=== PATIENT | male | born 1965 | race Caucasian/White ===

== ENCOUNTER 2020-03-28 01:22 | Outpatient (CLI) | payer OTHER, SELFPAY ==
[2020-03-29 13:59] LABS: SARS-CoV-2 RNA PCR Negative
== END 2020-03-28 01:23 | disposition home or self-care (01) ==
LOC: ANHCOVIDDT 01:23
PROVIDERS: PCP Family Medicine; Visit Provider Internal Medicine Gastroenterology
DX: Z01.818 Encounter for other preprocedural examination (principal); Z11.59 Encounter for screening for other viral diseases
CPT/HCPCS: 87635; C9803; U0003

== ENCOUNTER 2020-03-30 03:40 | Day surgery (SDC) | payer OTHER, SELFPAY ==
[2020-03-23 15:07] VITALS: BMI 25.4
[2020-03-30 06:23] VITALS: BP 99/73; PULSE 59; RESP 20; TEMP 36.7; O2SAT 99; BMI 24.5
[2020-03-30] MEDS: LACTATED RINGERS 1,000 ML 150 ML IV CONT (06:34)
--- NOTE | 2020-03-30 06:41 | P.PNAN_ITS ---
Anes - Initial Pre Proc Eval Procedure: Operation Date: 03/30/20 07:30 Proposed Procedures p Screening Colonoscopy - Andrez Arias MD Date/Time: 03/30/20 06:41 Surgeon: Andrez Arias MD Pre Op Diagnosis: neoplasm screening Patient Data Age: 54 Gender: M Height: 5 ft 9 in Weight: 75.5 kg Last Vital Signs Temp 36.7 C 03/30/20 06:23 Pulse 59 L 03/30/20 06:23 Resp 20 03/30/20 06:23 BP 99/73 L 03/30/20 06:23 Pulse Ox 99 03/30/20 06:23 Allergies Allergy/AdvReac Type Severity Reaction Status Date / Time povidone Allergy Unknown Swelling Verified 03/30/20 06:22 Home Medications Medication Instructions Recorded Confirmed Type simvastatin 20 mg tablet 20 mg PO QPM #90 tablet 11/10/19 03/23/20 Rx sildenafil [Viagra] 50 mg PO DAILY PRN 03/23/20 03/23/20 History peg 3350-electrolytes 236 240 ml PO Q10M #4000 ml 03/28/20 Rx gram-22.74 gram-6.74 gram-5.86 gram solution Patient hx anesthesia problems: none Family hx anesthesia problems: none PMFSH Past Medical History Medical History Cervical radiculopathy Erectile dysfunction Hypercholesterolemia Hypogonadism Surgical History Surgical History [place] teeth extracted Family History Family History Other High cholesterol Social History Social History Smoking status: Never smoker Second hand tobacco smoke exposure: No Alcohol intake: current Substance use: never Substance use type: does not use Gender identity (if verbalized by the patient): Male Anes - Eval Final PreProcedure Day of Procedure 03/30/20 06:41 Patient weight: normal Heart: regular rate and rhythm Lungs: clear to auscultation Airway: Mallampati scale class II Neurological: alert and oriented Last oral intake: >/= 8 hours ASA classification: II Emergent: no Anesthetic plan: proceed Anesthesia type and monitoring: general GIVS and standard monitoring Informed Consent: The patient's anesthetic plan and its attendant risks and benefits were discussed with the patient/family/POA. Questions were solicited and answers provided to the satisfaction of the patient/family/POA.
--- NOTE | 2020-03-30 07:53 | PM.HPGS ---
History of Present Illness History of Present Illness Consent: Risks, benefits, and alternatives have been discussed and questions answered. Patient agrees to proceed with procedure. Chief complaint: neoplasm screening Narrative: Kasi Heath is a 54 year old male here for first screening colonoscopy Review of Systems Constitutional: Constitutional: Denies headache(s) and Denies weakness Eyes: Eyes: Denies blurry vision ENT: Reports Normal hearing present, Denies headache(s) and Denies neck pain Cardiovascular: Cardiovascular: Denies chest pain and Denies dyspnea Respiratory: Respiratory: Denies dyspnea Gastrointestinal: Gastrointestinal: Reports no additional gastrointestinal complaints Genitourinary: Genitourinary: Denies dysuria Musculoskeletal: Musculoskeletal: Denies neck pain Integumentary/Breasts: Skin/Breast: Denies dry skin Neurologic: Reports Normal hearing present, Denies headache(s) and Denies weakness Psychiatric: Psychiatric: Denies anxiety Endocrine: Endocrine: Denies change in body appearance Hematologic/Lymphatic: Hematologic/Lymphatic: Denies easy bleeding Allergic/Immunologic: Allergic/Immunologic: Denies urticaria PMFSH Past Medical History Medical History Cervical radiculopathy Erectile dysfunction Hypercholesterolemia Hypogonadism Surgical History Surgical History [place] teeth extracted Family History Family History Other High cholesterol Social History Social History Smoking status: Never smoker Second hand tobacco smoke exposure: No Alcohol intake: current Substance use: never Substance use type: does not use Gender identity (if verbalized by the patient): Male Meds Home Medications and Allergies Home Medications Medication Instructions Recorded Confirmed Type simvastatin 20 mg tablet 20 mg PO QPM #90 tablet 11/10/19 03/23/20 Rx sildenafil [Viagra] 50 mg PO DAILY PRN 03/23/20 03/23/20 History peg 3350-electrolytes 236 240 ml PO Q10M #4000 ml 03/28/20 Rx gram-22.74 gram-6.74 gram-5.86 gram solution Allergies Allergy/AdvReac Type Severity Reaction Status Date / Time povidone Allergy Unknown Swelling Verified 03/30/20 06:22 Vital Signs Vital Signs - 24 hr 03/30/20 06:23 Temperature 98.0 F Pulse Rate 59 L Respiratory Rate 20 Blood Pressure 99/73 L Pulse Oximetry 99 Exam Const: General: comfortable and no acute distress HENMT: General nose exam: Normal nares present Eyes: General: appearance normal, both eyes and all related structures Neck: Neck: no JVD Resp: Auscultation: clear to auscultation bilaterally Cardio: Rate: regular rate Rhythm: regular rhythm GI: Inspection: non-distended GI Palp: Yes Soft to palpation Skin: General skin exam: normal color Neuro: General: gait normal Speech: normal speech Extrem: General: normal to inspection Psych: Mental Status: mental status grossly normal Assessment and Plan Assessment and plan (1) Colon cancer screening: Code(s): Z12.11 - Encounter for screening for malignant neoplasm of colon Status: Acute Assessment and Plan: will proceed with colonoscopy (2) Hypercholesterolemia: Code(s): E78.00 - Pure hypercholesterolemia, unspecified Status: Acute
[2020-03-30 08:11] VITALS: BP 96/67; PULSE 58; RESP 16; O2SAT 96
[2020-03-30 08:21] VITALS: BP 100/65; PULSE 58; RESP 13; O2SAT 97
[2020-03-30 08:31] VITALS: BP 96/54; PULSE 50; RESP 16; O2SAT 98
== END 2020-03-30 08:49 | disposition home or self-care (01) ==
PROVIDERS: PCP Family Medicine; Visit Provider Internal Medicine Gastroenterology
PROC: 0DJD8ZZ Inspection of Lower Intestinal Tract, Via Natural or Artificial Opening Endoscopic (ICD-10-PCS; CPT 45378; principal; 2020-03-30 07:30)
DX: Z12.11 Encounter for screening for malignant neoplasm of colon (principal); E78.00 Pure hypercholesterolemia, unspecified; N52.9 Male erectile dysfunction, unspecified
CPT/HCPCS: 45378; J2704; J7120

== ENCOUNTER 2021-05-06 18:07 | Observation (INO) | payer BC, SELFPAY ==
--- NOTE | ~2021-05-06 | CT_ITS ---
EXAMINATION: CT abdomen pelvis w con DATE: 05/07/2021 09:59 INDICATION: Epigastric abdominal pressure. Nausea. TECHNIQUE: Computed tomography (CT) of the abdomen and pelvis was performed with 100 mL Omnipaque 350 intravenous contrast. Automated exposure control and iterative reconstruction technique were employe d. The dose-length product was 384.28 mGy-cm. COMPARISON: None. FINDINGS: The visualized portions of the lung bases demonstrate mild atelectasis. No pleural effusion . Calcified left hilar lymph nodes are consistent with old granulomatous disease. The heart size is n ormal. No pericardial effusion. The liver, gallbladder, spleen, pancreas, and adrenal glands are norm al. There are cysts in the kidneys measuring up to 10 mm on the left. There is a 3 mm stone in right kidney. The prostate is mildly enlarged. There are no dilated loops of bowel. The appendix is normal. There are no pathologically enlarged lymph nodes. There is no free intraperitoneal fluid. There is m ild fat stranding at the root of the small bowel mesentery. There is mild chronic anterior wedging of multiple thoracic vertebral bodies. There is mild thoracic and lumbar spondylosis. IMPRESSION: 1. Mild fat stranding at the root of the small bowel mesentery, consistent with edema versus inflamma tion (mesenteric panniculitis). Reviewed, dictated and finalized at location A. IMPRESSION: 1. 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
--- NOTE | ~2021-05-06 | XR_ITS ---
EXAMINATION: XR chest 1V portable EXAM DATE: 05/07/2021 01:58 INDICATION: Chest pain. TECHNIQUE: Portable AP frontal chest x-ray was obtained. Comparison is made to prior examination from 08/05/2018. FINDINGS: The lungs are clear. There are no pleural effusions. The cardiomediastinal silhouette is within normal limits. There is no pneumothorax suspected. The bones and soft tissues are unremarkab le. IMPRESSION: Unremarkable chest x-ray exam. Reviewed, dictated and finalized at location A.
--- NOTE | ~2021-05-06 | US_ITS ---
EXAMINATION: US carotid duplex BI EXAM DATE: 05/07/2021 12:31 INDICATION: Syncope. TECHNIQUE: Grayscale, color and pulsed Doppler images of the cervical carotid arteries were obtained . The degree of vessel stenosis is placed in one of the following categories: normal, <50% stenosis, 50-69% stenosis, >=70% stenosis but less than near-occlusion, near-occlusion, or occlusion. Note that percent stenosis relative to normal distal artery lumen diameter is indirectly measured from velocit y measurements as described by Christopher, et al. Radiology 2003; 229:340-346. Comparison is made to prior examination from 04/05/2018. FINDINGS: RIGHT SIDE: Right common carotid artery peak systolic velocity (PSV in cm/s): 74 Right bulb/internal carotid artery peak systolic velocity (PSV in cm/s): 75 Right internal carotid artery end diastolic velocity (EDV in cm/s): 32 Right ICA/CCA peak systolic ratio: 1.0 Right external carotid artery peak systolic velocity (PSV in cm/s): 95 Right vertebral artery antegrade flow: yes There is minimal carotid bulb plaque. Velocity and Doppler waveforms in the common and internal carotid arteries is normal. LEFT SIDE: Left common carotid artery peak systolic velocity (PSV in cm/s): 97 Left bulb/internal carotid artery peak systolic velocity (PSV in cm/s): 72 Left internal carotid artery end diastolic velocity (EDV in cm/s): 27 Left ICA/CCA peak systolic ratio: 0.7 Left external carotid artery peak systolic velocity (PSV in cm/s): 102 Left vertebral artery antegrade flow: yes There is minimal carotid bulb plaque. Velocity and Doppler waveforms in the common and internal carotid arteries is normal. IMPRESSION: 1. Less than 50 percent stenosis in the right internal carotid artery. 2. Less than 50 percent stenosis in the left internal carotid artery. Reviewed, dictated and finalized at location A.
--- NOTE | ~2021-05-06 | CT_ITS ---
EXAMINATION: CT brain wo con DATE: 05/06/2021 23:24 INDICATION: Syncope TECHNIQUE: Computed tomography (CT) of the head was performed without intravenous contrast. The mA wa s adjusted according to patient size. Iterative reconstruction technique was employed. Exam dose: 68 1.00 mGy-cm total exam DLP. COMPARISON: 04/04/2018 CT brain FINDINGS: No intracranial mass lesion or hemorrhage or cerebrovascular accident. No ventriculomegaly. A stable small calcification is noted in the posterior aspect of the right frontal horn, unchanged s peyman 04/04/2018. Normal mukherjee-white matter differentiation. No midline shift or mass effect effect. There is bilateral carotid siphon internal carotid artery calcification. No intracranial mass lesion or hemorrhage or cerebrovascular accident. No subdural or epidural hemato ma. The orbits are unremarkable. No fracture or bone destruction of the cranial vault. The mastoid air cells and included paranasal si nuses are unremarkable. IMPRESSION: No acute intracranial finding or significant change since 04/04/2018 Reviewed, dictated and finalized at Location A. Reviewed, dictated and finalized at location A. IMPRESSION: No acute intracranial finding or significant change since 8
--- NOTE | ~2021-05-06 | NM_ITS ---
EXAMINATION: NM layo stress w perfusion DATE: 05/07/2021 12:56 INDICATION: Retrosternal chest pain. TECHNIQUE: Rest images were obtained following intravenous administration of 9.8 mCi Tc99m tetrofosmi n (Myoview). The patient was infused intravenously with Lexiscan (regadenoson). Then, 29.7 mCi Tc99m tetrofosmin (Myoview) was administered intravenously, and stress images were obtained. Data was recon structed into short axis and horizontal and vertical long axis SPECT images. Gated SPECT images were also obtained. COMPARISON: CT abdomen and pelvis 05/07/2021 FINDINGS: There is no definite reversible or fixed perfusion abnormality to suggest ischemia or infar ction. There is no segmental wall motion abnormality. Left ventricular ejection fraction measures 6 4%. IMPRESSION: 1. No definite ischemia or infarct. 2. Normal left ventricular ejection fraction measuring 64%. Reviewed, dictated and finalized at location A.
--- NOTE | 2021-05-06 18:16 | ECG_ITS ---
Measurements Intervals [place] Rate: 91 P: -7 MD: 104 QRS: 0 QRSD: 96 T: 17 QT: 399 QTc: 492 Interpretive Statements SINUS RHYTHM WITH SHORT MD INTERVAL NONSPECIFIC T-WAVE ABNORMALITY- ANT/INF LEADS BORDERLINE ECG Electronically Signed On 05-07-2021 6:45:12 CDT by Jeramy Nathan D.O.
[2021-05-06 18:25] VITALS: BP 105/52; PULSE 62; RESP 18; TEMP 36.3; O2SAT 97
[2021-05-06 18:35] LABS: Basophils Absolute Auto 0.1 K/mm3 (0.0-0.1); Basophils Percent Auto 0.6 % (0.2-1.2); Eosinophils Absolute Auto 0.3 K/mm3 (0-0.3); Eosinophils Percent Auto 3.9 % (0-4.4); Hematocrit 43.5 % (42.0-52.0); Hemoglobin 14.3 g/dL (14.0-18.0); Immature Granulocyte Absolute 0.01 K/mm3 (0.00-0.031); Immature Granulocyte Percent A 0.1 % (0-0.5); Lymphocytes Absolute Auto 4.24 K/mm3 (0.9-3.2); Lymphocytes Percent Auto 51.8 % (18.3-44.2); Mean Corpuscular HGB Conc 32.9 g/dl (32-36); Mean Corpuscular Hemoglobin 29.4 pg (26-34); Mean Corpuscular Volume 89.5 fl (80-100); Monocytes Absolute Auto 0.6 K/mm3 (0.1-0.6); Monocytes Percent Auto 7.6 % (2.6-8.5); Neutrophils Absolute Auto 2.9 K/mm3 (1.3-6.7); Platelet Count Result 260 k/mm3 (150-375); Red Blood Count 4.86 M/mm3 (4.6-6.20); Red Cell Distribution Width 13.5 % (11.5-14.5); White Blood Count 8.2 K/mm3 (4.5-10.0)
[2021-05-06 18:50] LABS: Anion Gap 13 mmol/L (8-16); Blood Urea Nitrogen 17 mg/dL (9-20); Calcium 9.7 mg/dL (8.4-10.2); Carbon Dioxide 21 mmol/L (22-30); Chloride 101 mmol/L (98-107); Estimated CRCL calculation 103 ml/min; Estimated Glomerular Filt Rate > 60; Glucose 132 mg/dL (65-110); Potassium 3.3 mmol/L (3.4-5.0); Sodium 135 mmol/L (137-145)
[2021-05-06 22:35] VITALS: BP 109/62; PULSE 66; O2SAT 98
[2021-05-06 22:52] VITALS: BP 104/78; PULSE 67; RESP 20; O2SAT 98
[2021-05-06 22:53] VITALS: PULSE 66
[2021-05-06 23:50] VITALS: BP 100/70; PULSE 64; RESP 12; O2SAT 97
[2021-05-07] VITALS (16 sets, daily range): BP systolic 99–115; BP diastolic 67–82; PULSE 52–91; RESP 12–20; TEMP 36–36.4; O2SAT 96–100; BMI 24.4; BMI 24.6
--- NOTE | 2021-05-07 | ECHO_ITS ---
Patient Info Name: Kasi Heath Age: 55 years : 1965 Gender: Male Ht: 69 in Wt: 167 lbs BSA: 1.93 m2 HR: 60 bpm BP: 99 / 67 mmHg Heart Rhythm: Sinus Rhythm Technical Quality: Good Exam Date: 05/07/2021 1:23 PM Exam Location: [facility] Pulmonary Patient Status: Inpatient Admit Date: 05/07/2021 Staff Ordering Physician: Slava Mckee MD Manager Auto: Adrienne Back RDCS Attending Provider: Gennaro Anthony MD Referring Physician: Rafi KAMARA; Exam Type: CA echo doppler color flow Study Info Indications R55 - Syncope and collapse Complete two-dimensional, color flow and Doppler transthoracic echocardiogram is performed. Strain analysis performed. Summary 1. Complete two-dimensional, color flow and Doppler transthoracic echocardiogram is performed. 2. Strain analysis performed. 3. Left ventricular systolic function is normal, estimated at 55-60%. 4. Left ventricular chamber dimension is normal. 5. There is no increased left ventricular wall thickness. 6. The left ventricular diastolic function is normal. 7. Global longitudinal strain is normal at -20 %. 8. There is mild mitral valve regurgitation. 9. There is mild tricuspid valve regurgitation. Left Ventricle Left ventricular chamber dimension is normal. Left ventricular systolic function is normal, estimated at 55-60%. There is no increased left ventricular wall thickness. The left ventricular diastolic function is normal. Global longitudinal strain is normal at -20 %. Right Ventricle Right ventricular chamber dimension is normal. Right ventricular systolic function is normal. Left Atria Left atrial chamber dimension is normal. Right Atria Right atrial chamber dimension is normal. Atrial Septum Intact interatrial septum visualized by color flow imaging. Aortic Valve The aortic valve is trileaflet. There is mild aortic valve sclerosis. There is no aortic valve stenosis. There is trace aortic valve regurgitation. Pulmonic Valve The pulmonic valve is normal. There is no pulmonic valve stenosis. There is trace pulmonic regurgitation. Mitral Valve The mitral valve has normal leaflets. There is no mitral valve stenosis. There is mild mitral valve regurgitation. Tricuspid Valve The tricuspid valve leaflets are normal. There is no significant tricuspid valve stenosis. There is mild tricuspid valve regurgitation. No pulmonary hypertension, estimated pulmonary arterial systolic pressure is 29 mmHg. Inferior Vena Cava Normal inferior vena cava with <50% collapse upon inspiration consistent with elevated right atrial pressure, 10 mmHg. Aorta The aortic root size at the sinus of Valsalva is normal. The prox ascending aorta size is normal. Left Ventricular Outflow Tract Name Value Normal LVOT 2D LVOT Diameter 2.0 cm LVOT Doppler LVOT Peak Gradient 5 mmHg LVOT Mean Gradient 3 mmHg LVOT VTI 23 cm LVOT VTI/AV VTI Ratio 0.9 LVOT Stroke Volume 76 ml
--- NOTE | 2021-05-07 00:12 | ED.GENADULT ---
HPI - General Adult General Chief complaint: Syncope Stated complaint: LIGHTHEADED, NAUSEA, SYNCOPE Time Seen by Provider: 05/06/21 22:58 Source: patient History of Present Illness HPI narrative: Patient is a 55 y/o male complaining of passing out. He states that he was not feeling well when he was driving to a [employer] earlier and pulled over in the parking lot. He states that he passed out briefly and felt numbness and tingling all over. He also has been having abdominal pain and chest pressure since earlier today. He does not have any chest pain or abdominal pain currently. Related Data Allergies Allergy/AdvReac Type Severity Reaction Status Date / Time povidone Allergy Unknown Swelling Verified 09/04/20 15:31 Review of Systems Constitutional: Constitutional: Denies chills, Denies fever(s), Denies headache(s) and Denies weakness Eyes: Eyes: Denies blurry vision ENT: Denies headache(s) and Denies neck pain Cardiovascular: Cardiovascular: Reports chest pain and Denies dyspnea Respiratory: Respiratory: Denies cough and Denies dyspnea Gastrointestinal: Gastrointestinal: Reports abdominal pain, Denies diarrhea, Denies nausea and Denies vomiting Genitourinary: Genitourinary: Denies hematuria and Denies dysuria Musculoskeletal: Musculoskeletal: Denies back pain and Denies neck pain Neurologic: Reports syncope, Denies headache(s) and Denies weakness PMFSH Past Medical History Medical History Cervical radiculopathy Colon cancer screening Erectile dysfunction Hypercholesterolemia Hypogonadism Surgical History Surgical History [place] teeth extracted Family History Family History (Updated 05/07/21 @ 12:07 by Slava Mckee MD) Other Heart attack Father Cancer Other High cholesterol Social History Social History Smoking status: Never smoker Second hand tobacco smoke exposure: No Alcohol intake: current Drinks per week: 2 Alcohol use details: consumes 3 beers socially Substance use: never Substance use type: does not use Gender identity (if verbalized by the patient): Male Spiritual care concerns: No Exam Const: General: no acute distress and well developed Orientation/consciousness: oriented to person, oriented to place, oriented to time and patient oriented x3 HENMT: Head: normocephalic Ears: external ears normal General nose exam: Normal external nose present Eyes: General: appearance normal, both eyes and all related structures Conjunctivae: conjunctivae normal Neck: Neck: normal visual inspection and full ROM Chest: Chest palpation & inspection: normal inspection of the chest and no tenderness Resp: Effort & Inspection: normal respiratory effort Auscultation: clear to auscultation bilaterally Cardio: Rate: regular rate Rhythm: regular rhythm GI: GI Palp: No abdominal tenderness and Yes Soft to palpation Skin: General skin exam: normal color and turgor normal Neuro: General: oriented to person, oriented to place, oriented to time and patient oriented x3 Cognition (Neuro): normal cognition Extrem: General: normal to inspection, full ROM and no pedal edema Psych: Appearance: grossly normal Mental Status: mental status grossly normal Affect: normal affect Course Consultations Consultation #1: Discussed with Dr. Anthony, who agrees to admit. Date: 05/07/21 Time: 01:48 Vital Signs Vital signs: Vital Signs Temperature 36.3 C L 05/06/21 18:25 Pulse Rate 62 05/06/21 18:25 Respiratory Rate 18 05/06/21 18:25 Blood Pressure 105/52 L 05/06/21 18:25 Pulse Oximetry 97 05/06/21 18:25 Temperature 36.4 C L 05/07/21 09:23 Pulse Rate 60 05/07/21 14:00 Respiratory Rate 20 05/07/21 13:05 Blood Pressure 111/68 05/07/21 13:05 Pulse Oximetry 100 05/07/21 13:05
[2021-05-07] MEDS: POTASSIUM CHLORIDE 20 MEQ TABLET PO (01:05)
[2021-05-07 01:27] LABS: Troponin I < 0.012 ng/mL (0.000-0.034)
[2021-05-07 03:52] LABS: Troponin I < 0.012 ng/mL (0.000-0.034)
--- NOTE | 2021-05-07 04:24 | PM.IMHP ---
H&P: HPI History of Present Illness Date/Time: 05/07/21 04:24 Chief Complaint: Retrosternal pain Narrative: This is a 55-year-old male with past medical history significant for dyslipidemia. 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 Patient states that he has been his usual state of health up until this episode he denies any chest pain ,any nausea, any vomiting, any lightheadedness, dizziness, syncope or near syncope, no cough, no sputum production, no diarrhea, no hematemesis, no hematochezia, no melena. He was feeling very lightheaded and decided to come to our emergency room. Preliminary workup has been essentially nonrevealing. Patient has been placed in observation status. Review of Systems Review of Systems: Retrosternal chest pain and syncope Constitutional: Constitutional: Denies chills, Denies fatigue and Denies fever(s) Eyes: Eyes: Denies change in vision ENT: Denies dysphagia, Denies nasal congestion, Denies nasal discharge, Denies nasal obstruction and Denies odynophagia Cardiovascular: Cardiovascular: Reports chest pain (Retrosternal) and Reports lightheadedness Respiratory: Respiratory: Denies cough and Denies wheezing Gastrointestinal: Gastrointestinal: Denies abdominal pain, Denies constipation, Denies GI cramping, Denies dyspepsia, Denies heartburn, Reports nausea and Denies vomiting Genitourinary: Genitourinary: Reports no additional male genitourinary complaints Musculoskeletal: Musculoskeletal: Reports no additional musculoskeletal complaints Integumentary/Breasts: Skin/Breast: Reports system reviewed and no additional complaints, except as docu Neurologic: Reports system reviewed and no additional complaints, except as documented Psychiatric: Psychiatric: Reports no additional psychiatric complaints Endocrine: Endocrine: Reports no additional endocrine complaints Hematologic/Lymphatic: Hematologic/Lymphatic: Reports no additional hematologic/lymphatic complaints Allergic/Immunologic: Allergic/Immunologic: Reports no additional allergic/immunologic complaints PMFSH Past Medical History Medical History Cervical radiculopathy Colon cancer screening Erectile dysfunction Hypercholesterolemia Hypogonadism Surgical History Surgical History [place] teeth extracted Family History Family History Other High cholesterol Social History Social History Smoking status: Never smoker Second hand tobacco smoke exposure: No Alcohol intake: current Alcohol use details: consumes 3 beers socially Substance use: never Substance use type: does not use Gender identity (if verbalized by the patient): Male Meds Home Medications and Allergies Home Medications Medication Instructions Recorded Confirmed Type sildenafil 50 mg tablet See Rx Instructions .ROUTE 03/22/21 Rx .COMPLEX #7 tablet simvastatin 20 mg tablet 20 mg PO QPM #90 tablet 03/22/21 Rx Allergies Allergy/AdvReac Type Severity Reaction Status Date / Time povidone Allergy Unknown Swelling Verified 09/04/20 15:31 Vital Signs Vital Signs - 24 hr 05/06/21 18:25 05/06/21 22:35 05/06/21 22:52 Temperature 97.3 F L Pulse Rate 62 66 67 Respiratory Rate 18 20 Blood Pressure 105/52 L 109/62 104/78 Pulse Oximetry 97 98 98 05/06/21 22:53 05/06/21 23:50 05/07/21 00:34 Temperature Pulse Rate 66
--- NOTE | 2021-05-07 04:25 | EST_ITS ---
Patient Info Name: Kasi Heath Age: 55 years : 1965 Gender: Male Ht: 69 in Wt: 165 lbs BSA: 1.92 m2 Exam Date: 05/07/2021 11:23 AM Exam Location: [facility] Stress Patient Status: Outpatient Admit Date: 05/07/2021 Staff Ordering Physician: Gennaro Anthony MD Attending Provider: Gennaro Anthony MD Exercise Technologist: Adrienne Back RDCS Exercise Physician: Slava Mckee MD Exam Type: CA stress layo w NM Study Info Indications R07.89 - Other chest pain A regadenoson stress test was performed. Summary 1. Please correlate with nuclear medicine images, reported separately. 2. No abnormal ST-T wave changes with lexiscan. Protocol: Lexiscan Stress ECG Details Stage: REST Duration (min): 1 min : 56 sec HR (bpm): 54 SBP (mmHg): 124 DBP (mmHg): 82 Stage: REST Duration (min): 7 min : 23 sec HR (bpm): 59 SBP (mmHg): 124 DBP (mmHg): 82 Stage: STAGE 1 Duration (min): 1 min : 0 sec HR (bpm): --- SBP (mmHg): 111 DBP (mmHg): 68 Stage: RECOVERY Duration (min): 1 min : 0 sec HR (bpm): 93 SBP (mmHg): 119 DBP (mmHg): 70 Stage: RECOVERY Duration (min): 2 min : 0 sec HR (bpm): 83 SBP (mmHg): 119 DBP (mmHg): 70 Stage: RECOVERY Duration (min): 3 min : 0 sec HR (bpm): 95 SBP (mmHg): 129 DBP (mmHg): 75 Stage: RECOVERY Duration (min): 3 min : 44 sec HR (bpm): 81 SBP (mmHg): 129 DBP (mmHg): 75 Rest HR: 59 bpm Peak HR: 106 bpm Rest Sys BP: 124 mmHg Peak Sys BP: 129 mmHg Max Pred HR: 165 bpm % Max Pred HR: 64 % Target HR: 140 bpm Max RPP: 13,674 bpm*mmHg Target HR Summary: Hemodynamic response to exercise was normal BP Response: Normal blood pressure response Termination Reason: Completed protocol Cardiac Symptoms: None Total Time: 1 min : 0 sec Rest Felix BP: 82 mmHg Peak Felix BP: 75 mmHg Total Dose: 0.4 mg Resting ECG Sinus bradycardia. Stress ECG No abnormal ST/T wave changes with exercise. Arrhythmias None. Report Signatures
--- NOTE | 2021-05-07 04:39 | PC.NURSE ---
LUKEAR faxed from the ED to IMU department at 0424 a.m.
--- NOTE | 2021-05-07 05:31 | PC.NURSE ---
Report called at 0450 by SHARMILA Collins with the ED. All questions answered and plan of care reviewed. Patient to go to IMU 206-1.
--- NOTE | 2021-05-07 05:33 | ADMGEN ---
This patient, Kasi Heath, was admitted to IMU Room 206-01 at 0530 from the ED. Patient/family oriented to hospital policies and general routines including ID bracelet, bed and alarms, visiting hours, pain management, procedures, bathroom and other care routines, personal items, smoking policy, room service/diet, and visiting hours. Information on how to activate the Rapid Response Team has been discussed. Patient/Family are encouraged to report perceived risks to care and to ask questions if they do not understand what they are told or what they should do.
[2021-05-07 07:48] LABS: Troponin I < 0.012 ng/mL (0.000-0.034)
[2021-05-07 09:20] LABS: Cholesterol 181 mg/dL (0-200); HDL Direct 45 mg/dL; Triglycerides 61 mg/dL (<150)
[2021-05-07 09:31] LABS: LDL Cholesterol Direct 107 mg/dL
--- NOTE | 2021-05-07 09:41 | PM.IMPN ---
Progress Note: A&P Assessment and Plan (1) Retrosternal chest pain: Code(s): R07.2 - Precordial pain Status: Acute Assessment and Plan: Will obtain CT of abdomen and pelvis which is pending at this time Chest x-ray reviewed Serial troponin had been negative Lexiscan stress test has been ordered Will obtain echocardiogram as well Supportive care Will consult Cardiology Family history of premature coronary artery disease present along with hyperlipidemia no smoking or diabetes (2) Syncope: Code(s): R55 - Syncope and collapse Status: Acute Assessment and Plan: Likely to be vasovagal Continue to monitor Get carotid ultrasound (3) Cervical radiculopathy: Code(s): M54.12 - Radiculopathy, cervical region Status: Acute Assessment and Plan: Unchanged (4) Hypercholesterolemia: Code(s): E78.00 - Pure hypercholesterolemia, unspecified Status: Acute Assessment and Plan: Unchanged Check lipid profile 181/45/107/61 Continue on simvastatin Subjective Date/time seen: 05/07/21 09:41 Interval history: Feels back to normal. Wonders about what happened. Chest tightness felt like me to her and upper abdominal discomfort. Some nausea but no vomiting Review of Systems Review of Systems: All systems reviewed & are unremarkable except as noted in HPI and below (HPI) Exam Narrative: GENERAL: The patient is well developed, not in acute distress HEENT: Nonicteric sclerae, PERRLA, EOMI. Oropharynx clear. Moist mucous membranes. Conjunctivae appear well perfused. CHEST: Chest wall is nontender. HEART: Regular rate and rhythm without murmur, rubs, or gallops LUNGS: Clear to auscultation bilaterally. no respiratory distress ABDOMEN: Soft, positive bowel sounds, non-tender, no organomegaly. SKIN: No rash, no excessive bruising, petechiae, or purpura. NEUROLOGIC: Cranial nerves II-XII intact, alert and oriented x 3, no gross motor deficits EXTREMITIES: no edema, cyanosis or clubbing Extrem: General: normal exam except as noted and no edema Objective Data Vital Signs Vital Signs: Vital Signs - 24 hr 05/06/21 18:25 05/06/21 22:35 05/06/21 22:52 Temperature 97.3 F L Pulse Rate 62 66 67 Respiratory Rate 18 20 Blood Pressure 105/52 L 109/62 104/78 Pulse Oximetry 97 98 98 05/06/21 22:53 05/06/21 23:50 05/07/21 00:34 Temperature Pulse Rate 66 64 60 Respiratory Rate 12 16 Blood Pressure 100/70 115/74 Pulse Oximetry 97 100 05/07/21 01:47 05/07/21 01:54 05/07/21 04:35 Temperature Pulse Rate 62 62 73 Respiratory Rate 15 15 19 Blood Pressure 108/82 108/82 103/77 Pulse Oximetry 99 99 99 05/07/21 05:17 05/07/21 05:28 05/07/21 06:00 Temperature 97.4 F L Pulse Rate 52 L 79 63 Respiratory Rate 12 18 Blood Pressure 109/82 101/68 Pulse Oximetry 99 96 05/07/21 09:23 Temperature 97.5 F L Pulse Rate 53 L Respiratory Rate 20 Blood Pressure 99/67 L Pulse Oximetry 98 Meds/Results Medications: Active Medications Generic Name Dose Route Start Last Admin Trade Name Freq PRN Reason Stop Dose Admin Simvastatin 20 mg 05/07/21 18:00 Simvastatin 20 Mg Tablet PO QPM [facility] Radiology Results: ITS Impressions Head CT 05/06/21 23:25 IMPRESSION: No acute intracranial finding or significant change since 04/04/2018 Chest X-Ray 05/07/21 06:55 IMPRESSION: Unremarkable chest x-ray exam. Labs Labs: Laboratory Results - last 24 hr 05/06/21 05/06/21 05/07/21 18:24 18:24 00:25 WBC 8.2 RBC 4.86 Hgb 14.3 Hct 43.5 MCV 89.5 MCH 29.4 MCHC 32.9 RDW 13.5 Plt Count 260 MPV 11.0 H Immature Gran % (Auto) 0.1 Neut % (Auto) 36.0 L Lymph % (Auto) 51.8 H [place] % (Auto) 7.6 Eos % (Auto) 3.9 Baso % (Auto) 0.6 Lymph # (Auto) 4.24 H [place] # (Auto) 0.6 Eos # (Auto) 0.3 Baso # (Auto) 0.1 Abs Immat Gran (auto) 0.01 Absolute Neuts (auto) 2.9
--- NOTE | 2021-05-07 11:21 | PC.NURSE ---
0945- To CT dept for CT abdomen and then to MT for Lexiscan via w/c accompanied by staff
--- NOTE | 2021-05-07 12:02 | PM.CNCAR ---
Assessment and Plan Assessment and plan (1) Syncope: Code(s): R55 - Syncope and collapse Status: Acute Assessment and Plan: Likely vasovagal mediated. He does have significant prodrome which allows him to avoid significant injury. 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 Stress test has been performed and I will order a 2D echocardiogram with Doppler to ensure no evidence of structural heart disease but he has had 4 episodes in his lifetime which are all similar and appears vagally mediated. Uncertain if this is predominantly vasodepressor or cardioinhibitory in etiology. Will consider outpatient telemetry monitoring and have him schedule follow-up in the office Will check a TSH and free T4 level. Also as well as replace his potassium 40 mg p.o. x1 because of his hypokalemia. (2) Hypercholesterolemia: Code(s): E78.00 - Pure hypercholesterolemia, unspecified Status: Acute Assessment and Plan: Continue statin (3) Cervical radiculopathy: Code(s): M54.12 - Radiculopathy, cervical region Status: Acute Assessment and Plan: At the given the name of Sam Jolly, neurosurgeon (4) Erectile dysfunction: Qualifiers: Erectile dysfunction type: unspecified Qualified Code(s): N52.9 - Male erectile dysfunction, unspecified Code(s): N52.9 - Male erectile dysfunction, unspecified Status: Acute Assessment and Plan: On sildenafil History of Present Illness History of Present Illness Consult date/time: 05/07/21 12:02 Requesting physician: Suraj Saul MD Consult reason: Other (Syncope) Reason For Visit: Chest Pain, Syncope Narrative: Date of service 05/07/2021 Reason for consultation: Syncope Requesting provider Dr. Saul History: Patient is a 55-year-old male who does not have known cardiac history. At history though of passing out. He passed out once in a dentist office. 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 He does have a prodrome including some dizziness and lightheadedness before losing consciousness. He is able to mold puller or. He is doing. He is not sustained any injury. Yesterday he was called home from work by his as his [id number] was being taken to the hospital. He was sitting in the car for about 45 minutes whenever he started to have some abdominal pain and a ?stomach ache ?. He had decided to leave but did not feel very well and pulled over and parked. He again felt like he was going to throw up and became lightheaded and very diaphoretic. After parking he did lose consciousness for an unknown amount of time. Once waking up, he did get out of his car and started to walk around but felt quite dizzy upon doing so. He also felt like his if he needed to burp but could not. Patient has not had any exertional chest pain recently. He did feel little short of breath yesterday. Denied any palpitations, edema, paroxysmal nocturnal dyspnea or orthopnea. He decided to drive back to the ER where workup to this point has been benign. Troponins are negative Review of Systems Review of Systems: Previous history of passing out All systems reviewed & are unremarkable except as noted in HPI and below Constitutional: Constitutional: Denies weakness Eyes: Eyes: Denies blurry vision ENT: Reports Normal hearing present Cardiovascular: Cardiovascular: Reports diaphoresis and Denies palpitations Respiratory: Respiratory: Denies dyspnea on exertion Gastrointestinal: Gastrointestinal: Reports abdominal pain Genitourinary: Genitourinary: Denies dysuria Musculoskeletal: Musculoskeletal: Denies back pain and Denies neck pain Integumentary/Breasts: Skin/Breast: Denies dry skin and Denies unusual bruising Neurologic: Denies headache(s) and Denies numbness Psychiatric: Psychiatric: Denies anxiety and
[2021-05-07 12:54] LABS: T4 Thyroxine 7.33 ug/dL (5.53-11.0)
[2021-05-07 13:08] LABS: Thyroid Stimulating Hormone 0.468 uIU/mL (0.465-4.680)
[2021-05-07] MEDS: POTASSIUM CHLORIDE 20 MEQ TABLET 40 MEQ PO (14:18)
--- NOTE | 2021-05-07 19:14 | PM.DS ---
DS: Admitting Diagnosis Admitting Diagnosis syncope DS: Discharge Diagnosis Discharge Diagnosis (1) Retrosternal chest pain: Code(s): R07.2 - Precordial pain Status: Acute Assessment and Plan: Chest x-ray reviewed Serial troponin had been negative Lexiscan stress test was done and was normal. ECHo was reviewed and with no acute findings EF 55-60%. cardiology was consulted. Family history of premature coronary artery disease present along with hyperlipidemia no smoking or diabetes (2) Syncope: Qualifiers: Syncope type: unspecified Qualified Code(s): R55 - Syncope and collapse Code(s): R55 - Syncope and collapse Status: Acute Assessment and Plan: Likely to be vasovagal similar episdoes int he past. Continue to monitor carotid us with < 50% stenosis bialteral plan for outpatient telemetry moniotoring. 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 with subsequent imporvement in his epigastric area pain advised to follow clinically and follow up if the pain worsens. He had normal wbc count , no fever and benign abdominal examination (3) Cervical radiculopathy: Code(s): M54.12 - Radiculopathy, cervical region Status: Acute Assessment and Plan: Unchanged (4) Hypercholesterolemia: Code(s): E78.00 - Pure hypercholesterolemia, unspecified Status: Acute Assessment and Plan: Unchanged Checked lipid profile 181/45/107/61 Continue on simvastatin DS: Summary Hospital Course Hospital Course: see above Time Spent with Patient Time attestation: Total time spent providing and/or coordinating discharge services:40 mins Exam Narrative: GENERAL: The patient is well developed, not in acute distress HEENT: Nonicteric sclerae, PERRLA, EOMI. Oropharynx clear. Moist mucous membranes. Conjunctivae appear well perfused. CHEST: Chest wall is nontender. HEART: Regular rate and rhythm without murmur, rubs, or gallops LUNGS: Clear to auscultation bilaterally. no respiratory distress ABDOMEN: Soft, positive bowel sounds, non-tender, no organomegaly. SKIN: No rash, no excessive bruising, petechiae, or purpura. NEUROLOGIC: Cranial nerves II-XII intact, alert and oriented x 3, no gross motor deficits EXTREMITIES: no edema, cyanosis or clubbing DS: Data Data Completed and Pending Labs on day of discharge: Labs from last 24 hours 05/07/21 05/07/21 05/07/21 06:37 06:35 06:35 Troponin I < 0.012 Triglycerides 61 Cholesterol 181 LDL Cholesterol Direct 107 HDL Direct 45 TSH 0.468 Thyroxine (T4) 7.33 05/07/21 05/07/21 03:06 00:25 Troponin I < 0.012 < 0.012 Triglycerides Cholesterol LDL Cholesterol Direct HDL Direct TSH Thyroxine (T4) Imaging Radiologist's impression: ITS Impressions Head CT 05/06/21 23:25 IMPRESSION: No acute intracranial finding or significant change since 04/04/2018 Chest X-Ray 05/07/21 06:55 IMPRESSION: Unremarkable chest x-ray exam. Abdomen/Pelvis CT 05/07/21 10:19 IMPRESSION: 1. 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 Carotid Doppler Study 05/07/21 12:32 IMPRESSION: 1. Less than 50 percent stenosis in the right internal carotid artery. 2. Less than 50 percent stenosis in the left internal carotid artery. Lexiscan Stress Test 05/07/21 13:00 IMPRESSION: 1. No definite ischemia or infarct. 2. Normal left ventricular ejection fraction measuring 64%. Discharge Plan Discharge Attending physician on discharge: Suraj Saul Consulting providers: Jose Connors ; Slava Mckee Discharging Clinician: Suraj Saul Anticipated Discharge Date/Time: 05/07/21 19:13 Patient Disposition: Ho
== END 2021-05-07 20:00 | disposition home or self-care (01) ==
LOC: ANHED 23:43 → ANHIMU 05-07 05:18
PROVIDERS: Emergency Medicine; Internal Medicine Cardiovascular Disease; Admitting Provider Internal Medicine; Emergency Provider Emergency Medicine; Visit Provider Internal Medicine
DX: R07.2 Precordial pain (principal); R55 Syncope and collapse; E78.00 Pure hypercholesterolemia, unspecified; E78.5 Hyperlipidemia, unspecified; M54.12 Radiculopathy, cervical region; N52.9 Male erectile dysfunction, unspecified
CPT/HCPCS: 36415; 70450; 71045; 74177; 78452; 80048; 80061; 84436; 84443; 84484; 85025; 93005; 93017; 93306; 93880; 99285; A9270; A9502; G0378; J2785; Q9967

== ENCOUNTER 2021-08-30 15:00 | Outpatient (CLI) | payer BC, SELFPAY ==
--- NOTE | 2021-08-30 | ECG_ITS ---
Measurements Intervals [place] Rate: 53 P: 56 NC: 152 QRS: 5 QRSD: 90 T: 12 QT: 401 QTc: 377 Interpretive Statements SINUS BRADYCARDIA BORDERLINE ECG Electronically Signed On 08-30-2021 15:53:07 CERAMIC TILE INSTALLATION HELPER by Jeramy Nathan D.O.
[2021-08-30 15:35] LABS: Basophils Percent Auto 0.5 % (0.2-1.2); Eosinophils Absolute Auto 0.4 K/mm3 (0-0.3); Eosinophils Percent Auto 7.4 % (0-4.4); Hematocrit 39.3 % (42.0-52.0); Immature Granulocyte Absolute 0.02 K/mm3 (0.00-0.031); Immature Granulocyte Percent A 0.3 % (0-0.5); Lymphocytes Percent Auto 37.1 % (18.3-44.2); Mean Corpuscular HGB Conc 33.1 g/dl (32-36); Mean Corpuscular Hemoglobin 30.7 pg (26-34); Mean Corpuscular Volume 92.7 fl (80-100); Monocytes Absolute Auto 0.5 K/mm3 (0.1-0.6); Monocytes Percent Auto 7.6 % (2.6-8.5); Neutrophils Absolute Auto 2.8 K/mm3 (1.3-6.7); Neutrophils Percent Auto 47.1 % (45.5-73.1); Platelet Count Result 223 k/mm3 (150-375); Red Blood Count 4.24 M/mm3 (4.6-6.20); Red Cell Distribution Width 13.7 % (11.5-14.5); White Blood Count 5.9 K/mm3 (4.5-10.0)
[2021-08-30 15:42] LABS: Alanine Aminotransferase 23 U/L (4-50); Albumin Level 4.4 g/dL (3.5-5.1); Alkaline Phosphatase 63 U/L (38-126); Anion Gap 7 mmol/L (8-16); Aspartate Amino Transferase 27 U/L (17-59); Bilirubin,Total 0.5 mg/dL (0.2-1.3); Blood Urea Nitrogen 20 mg/dL (9-20); Calcium 9.4 mg/dL (8.4-10.2); Carbon Dioxide 28 mmol/L (22-30); Chloride 102 mmol/L (98-107); Estimated Glomerular Filt Rate > 60; Glucose 100 mg/dL (65-110); Potassium 4.1 mmol/L (3.4-5.0); Sodium 137 mmol/L (137-145)
== END 2021-08-30 15:01 | disposition home or self-care (01) ==
PROVIDERS: PCP Family Medicine
DX: Z01.818 Encounter for other preprocedural examination (principal); M48.02 Spinal stenosis, cervical region; R00.1 Bradycardia, unspecified
CPT/HCPCS: 36415; 80053; 85025; 87081; 93005

== ENCOUNTER 2023-02-22 17:48 | Emergency (ER) | payer BC, SELFPAY ==
[2023-02-22 17:55] VITALS: BP 110/75; PULSE 74; RESP 20; TEMP 36.8; O2SAT 99
[2023-02-22] MEDS: TETANUS,DIPHTHERIA,AC PERTUSSIS ADULT (0.5 ML) BOOSTRIX IM (18:18)
--- NOTE | 2023-02-22 18:38 | ED.GENADULT ---
HPI - General Adult General Chief complaint: Wound/Laceration Stated complaint: Head Injury/Laceration Source: patient Mode of arrival: ambulatory Limitations: no limitations History of Present Illness HPI narrative: Patient presents for evaluation of a scalp injury. He indicates he was driving a pole into the ground just prior to arrival when the tool hit him in the head. No LOC. No vomiting since the episode. Not on blood thinners. He reports some mild pain localized to that area. Denies headache otherwise and denies neurological symptoms. He has not taken any medication for his symptoms. Date of last tetanus unknown. He is not diabetic. Related Data Allergies Allergy/AdvReac Type Severity Reaction Status Date / Time povidone-iodine AdvReac Severe Rash Verified 02/22/23 18:08 [From Betadine] Review of Systems Review of Systems: CONSTITUTIONAL: Denies fever, chills, or sweats. EYES: Denies visual changes, redness, or discharge. ENT: Denies rhinorrhea, congestion, sore throat, or otalgia. CARDIOVASCULAR: Denies chest pain, palpitations, or edema. RESPIRATORY: Denies cough or dyspnea. GASTROINTESTINAL: Denies abdominal pain, nausea, vomiting, or diarrhea. GENITOURINARY: Denies dysuria or hematuria. SKIN: Reports lacerations to scalp MUSCULOSKELETAL: Denies back pain, joint pain, or myalgia. NEUROLOGIC: Denies headache, numbness, dizziness, or weakness. PSYCHIATRIC: Denies anxiety or depression. [facility] Past Medical History Medical History BPH (benign prostatic hyperplasia) Cervical radiculopathy Erectile dysfunction Hypercholesterolemia Hypogonadism Surgical History Surgical History H/O neck surgery (~08/2021) [place] teeth extracted (Unknown) Family History Family History Other Heart attack Father Cancer Other High cholesterol Social History Social History Smoking status: Never smoker Second hand tobacco smoke exposure: No Alcohol intake: current Drinks per week: 2 Alcohol use details: consumes 3 beers socially Substance use: never Substance use type: does not use Lack of Transportation: No Lack of Food: Never True Current Housing: I Have Housing Concerned About Future Housing: No Difficulty Paying Gas/Electric Bills: No Difficulty Paying for Meds: No Currently Unemployed: No Education: Bachelor's Degree Difficulty w/ Childcare or Family Care: No Living arrangements: with family Occupation/Education: occupation Gender identity (if verbalized by the patient): Male Spiritual care concerns: No Exam Narrative: GENERAL: Well-appearing, well-nourished, and in no acute distress. HEAD: Normocephalic, atraumatic. EYES: PERRLA and EOMI. ENT: Nares clear, no rhinorrhea or epistaxis. Mucous membranes moist. Oropharynx without tonsillar hypertrophy exudate or other lesions. Bilateral TMs pearly mukherjee nonbulging NECK: Supple. No adenopathy or masses. No carotid bruits or JVD CHEST: Clear to auscultation. No respiratory distress. No wheezes rales or rhonchi HEART: Regular rate and rhythm. No murmur heard. Normal peripheral pulses. ABDOMEN: Soft, nontender, nondistended, normal active bowel sounds. EXTREMITIES: Normal range of motion. No edema. SKIN: There is an approximately 3 cm linear fairly superficial laceration to the frontal region of scalp. There is another approximately 2.5 cm superficial laceration adjacent to that. NEURO: No focal deficits. Alert and oriented x3. PSYCH: Normal mood and affect. Course Course Emergency Course: This is a 57-year-old male who presented for evaluation of 2 superficial lacerations to the frontal region of his scalp. He did not meet criteria for neuro imaging so we were able to m
== END 2023-02-22 18:40 | disposition home or self-care (01) ==
PROVIDERS: Emergency Provider Nurse Practitioner; PCP Family Medicine
DX: S01.01XA Laceration without foreign body of scalp, initial encounter (principal); W27.8XXA Contact with other nonpowered hand tool, initial encounter; Z23 Encounter for immunization; N40.0 Benign prostatic hyperplasia without lower urinary tract symptoms; E78.00 Pure hypercholesterolemia, unspecified
CPT/HCPCS: 12002; 90471; 90715; 99212; G0463

== ENCOUNTER → 2023-10-01 14:29 | Outpatient (CLI) | payer BC, SELFPAY ==
--- NOTE | ~2023-10-01 | XR_ITS ---
EXAMINATION: XR lumbar spine min 4V DATE: 10/01/2023 14:52 INDICATION: Low back pain TECHNIQUE: Anteroposterior, lateral, and bilateral oblique views of the lumbar spine, and cone-down l ateral view of the lumbosacral junction were obtained. COMPARISON: None. FINDINGS: Bone alignment is normal. There is no fracture. There is mild loss of intervertebral disc s pace height at L5-S1. There is moderate bilateral facet joint osteoarthritis at L4-5 and L5-S1. The s oft tissues are unremarkable. IMPRESSION: 1. Mild lumbar spondylosis without acute findings. Reviewed, dictated and finalized at location F. IR DEPARTMENT SUPERVISOR
== END ==
PROVIDERS: PCP Family Medicine; Visit Provider Family Medicine
DX: M47.816 Spondylosis without myelopathy or radiculopathy, lumbar region (principal)
CPT/HCPCS: 72110

== ENCOUNTER 2023-11-09 14:45 | Outpatient (RCR) | payer BC, SELFPAY ==
--- NOTE | 2023-10-06 16:58 | OPREHPOC ---
Outpatient Therapy Plan of Care This is a Multidisciplinary Plan of Care that may contain components documented by all disciplines (PT, OT, and ST.) PT Problem 1 PT Problem #1 Knowledge Deficit PT Goal 1 Goal Pt to be IND with issued HEP Target Visit 5 PT Problem 2 PT Problem #2 Pain PT Goal 1 Goal Pt to report back pain no greater than 3/10 in the last week. Target Visit 8 PT Goal 2 Goal pt to report 75% improvement in overall symptoms. Target Visit 8 PT Problem 3 PT Problem #3 Impaired Range of Motion PT Goal 1 Goal Pt to report no increase in pain with active lumbar ROM Target Visit 8 PT Problem 4 PT Problem #4 Impaired Functional Mobil PT Goal 1 Goal Pt to demonstrate a functional lift with 30lb without an increase in symptoms. Target Visit 8
--- NOTE | 2023-10-06 16:58 | PTOPEVAL1 ---
Assessment and note entered by Acacia Mederos, PT, DPT Evaluation Information Assessment Status Evaluation Diagnosis chronic low back pain, neck pain Onset 2 months Subjective Information Pt states about 2 years ago he had next pain and they ended up replacing to discs . He states about 2 months ago his lower back started to hurt. He states the pain is worse at night when he is laying down at night and is also activity dependent. He does not having radicular low back pain. He also reports a new increase in RUE numbness and tingling, he states this is a similar feeling that he had 2 years ago. 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 Pt declines any back surgeries. Reported Pain Level Pain Score 1: Self Report Assessment PT Clinical Summary Pt presents to therapy for his initial evaluation with a diagnosis of chronic low back pain. Today he demonstrates pelvic asymmetries in supine that is corrected with muscle energy techniques. He demonstrates minor decreases in lumbar ROM in all directions. He demonstrates decreased body awareness during some functional movements. Skilled therapy services are indicated to improve body mechanics, core strength, and to return to PLOF without limitations. Plan of Care Interventions Electrical Stimulation,Gait Training,Hot Pack/Cold Pack,Manual Therapy,Mechanical Traction,Neuro Re- education,Patient/Caregiver Educati,Therapeutic Activities,Therapeutic Exercise PT Services Indicated Yes Treatment Frequency and 1x/wk for 5 visits Duration These treatments will address the objective and functional deficits as defined above. The patient will be advanced safely and appropriately in order for the patient to progress towards his/her prior level of function. Additional exercises will be introduced and as well as a comprehensive home exercise program upon discharge, if needed, ?to ensure carryover of functional gains achieved in the clinic. This treatment plan has been reviewed and agreement upon by the patient.
--- NOTE | 2023-10-14 15:49 | PCPTNOTE ---
Patient no showed this date. Patient called and states he got his time mixed up.
--- NOTE | 2023-11-09 15:38 | PTOPDC ---
Assessment and note entered by Acacia Mederos, PT, DPT Evaluation Information Assessment Status Discharge Diagnosis chronic low back pain, neck pain Onset 2 months Subjective Information Pt states it feels like his back is improving but he is still getting more pain then before. He states he still gets pain when rolling over in bed , when driving on bumpy roads, and standing without walking around. He states he feels like he has learned how to move his body better, but still gets pain if he is not paying attention. Reported Pain Level Pain Score 1: Self Report Assessment PT Clinical Summary Pt presents to therapy for his progress report following 5 visits of skilled therapy to treat his diagnosis of chronic low back pain. Today he demonstrates pelvic asymmetries initially that aligned with self correction techniques. He demonstrates improved core strength, body mechanics, and functional strength. He has met or progressed well towards his therapy goals and no longer requires skilled services. He will be discharged at this time. Plan of Care PT Services Indicated No
== END 2023-11-09 15:59 | disposition home or self-care (01) ==
LOC: ANHGOSHPT 14:45
PROVIDERS: PCP Family Medicine; Visit Provider Family Medicine
DX: M54.50 Low back pain, unspecified (principal); G89.29 Other chronic pain
CPT/HCPCS: 97110; 97161; 97530; 99199

== ENCOUNTER 2024-09-20 10:34 | Outpatient (CLI) | payer BC, SELFPAY ==
--- NOTE | ~2024-09-20 | XR_ITS ---
XR shoulder LT min 2V 09/20/2024 10:48 Indication: Left shoulder pain Procedure: 4 views left shoulder Comparison: No prior studies for comparison. Findings: There is osteoarthritis of the acromioclavicular joint with inferior spurring. There is kalpana tomic alignment. No acute fracture or traumatic malalignment. No foreign bodies. Impression: 1: Osteoarthritis of the left acromioclavicular joint. Reviewed, dictated and finalized at location B. MS ACCOUNT SPECIALIST Impression: 1: Osteoarthritis of the left acromioclavicular joint.
== END 2024-09-20 10:35 | disposition home or self-care (01) ==
LOC: GOSHIMG 10:36
PROVIDERS: PCP Orthopaedic Surgery; Visit Provider Family Medicine
DX: M19.012 Primary osteoarthritis, left shoulder (principal)
CPT/HCPCS: 73030

== ENCOUNTER 2024-12-28 13:08 | Outpatient (CLI) | payer BC, SELFPAY ==
--- NOTE | ~2024-12-28 | MR_ITS ---
EXAMINATION: MR shoulder LT wo con DATE: 12/28/2024 13:40 INDICATION: Left shoulder impingement syndrome TECHNIQUE: Magnetic resonance imaging (MRI) of the left shoulder was performed without intravenous co ntrast. Sequences included axial PD-weighted FS FSE, coronal oblique PD-weighted FS FSE, coronal obli que T2-weighted FS FSE, sagittal PD-weighted FS FSE, and sagittal T1-weighted SE. COMPARISON: None. FINDINGS: Coracoacromial arch: The acromion undersurface is curved in morphology (type II). The coracoacromial ligament is normal. M oderate acromioclavicular osteoarthritis with inferiorly directed osteophytes along the lateral head of the clavicle and subarticular edema-like signal change at both sides of the joint space. Rotator cuff: Moderate supraspinatus and anterior infraspinatus tendinopathy. There is a full-thickness tear along the superior facet footplate insertion of the supraspinatus tendon which measures 1.5 cm AP. There is a 1.7 cm medial retraction of the tear margin which is positioned at the level of the lateral rim of the acromion. The teres minor tendon is normal. Moderate subscapularis tendinopathy without discrete tear. Normal rotator cuff muscle bulk and signal. Biceps tendon, glenoid labrum and glenohumeral cartilage: Moderate tendinopathy without tear of the long head biceps tendon. Glenoid labrum is normal. There is mild partial-thickness cartilage loss with smooth chondral surface along the superior glenoid and in feromedial aspect of the humeral head. Fluid: There is a moderate-sized glenohumeral joint effusion which extends through the full-thickness rotato r cuff tear to indicate with a small amount of fluid in the subacromial/subdeltoid bursa. Bicipital t enosynovitis with small amount of fluid and mild synovitis long head biceps tendon sheath. No loose o steochondral bodies. Bones: No fracture or pathologic marrow replacing process. IMPRESSION: 1. Moderate rotator cuff tendinopathy with full-thickness tear along the superior facet footplate of the supraspinatus tendon which measures 1.5 cm AP by 1.7 cm medial to lateral. 2. Mild bicipital tenosynovitis with moderate tendinopathy without discrete tear of the long head bic eps tendon. 3. Moderate acromioclavicular osteoarthritis with inferior directed osteophytes. Reviewed, dictated and finalized at location A. IMPRESSION: 1. Moderate rotator cuff tendinopathy with full-thickness tear along the superi or facet footplate of the supraspinatus tendon which measures 1.5 cm AP by 1.7 cm medial to lateral. 2. Mild bicipital tenosynovitis with moderate tendinopathy without discrete tea r of the long head biceps tendon. 3. Moderate acromioclavicular osteoarthritis with inferior directed osteophytes .
== END 2024-12-28 13:09 | disposition home or self-care (01) ==
PROVIDERS: PCP Orthopaedic Surgery; Visit Provider Orthopaedic Surgery
DX: M75.102 Unspecified rotator cuff tear or rupture of left shoulder, not specified as traumatic (principal); M75.22 Bicipital tendinitis, left shoulder; M19.012 Primary osteoarthritis, left shoulder; M25.712 Osteophyte, left shoulder
CPT/HCPCS: 73221

== ENCOUNTER 2025-07-05 08:11 | Outpatient (CLI) | payer BC, SELFPAY ==
--- NOTE | 2025-07-05 08:25 | ECG_ITS ---
Test Date: 2025-07-05 08:30:28 Measurements Intervals [place] Rate: 55 P: 48 NH: 153 QRS: 5 QRSD: 94 T: 8 QT: 406 QTc: 389 Interpretive Statements SINUS BRADYCARDIA BORDERLINE T WAVE ABNORMALITY- INFERIOR LEADS BASELINE ARTIFACT- I, II, III, AVR, AVL, AVF, V1-V6 BORDERLINE ECG No previous ECG available for comparison Electronically Signed On 07-05-2025 09:19:20 CDT by Jeramy Nathan D.O.
[2025-07-05 10:00] LABS: MRSA (PCR) NOT DETECTED (NOT DETECTE)
== END 2025-07-05 08:12 | disposition home or self-care (01) ==
LOC: ANHSURGERY 08:15
PROVIDERS: PCP Family Medicine; Visit Provider Orthopaedic Surgery
DX: Z01.818 Encounter for other preprocedural examination (principal); M75.42 Impingement syndrome of left shoulder; E78.00 Pure hypercholesterolemia, unspecified
CPT/HCPCS: 87641; 93005

== ENCOUNTER 2025-07-11 00:12 | Day surgery (SDC) | payer BC, SELFPAY ==
--- NOTE | 2025-07-04 16:27 | SUR.PREOP ---
[facility] has started construction of its new state of the art ER which will open Spring 2026. With this, we anticipate parking may be a challenge for some our surgical patients and families. Parking spaces are limited but are available for all Surgical, obstetrics, and ER patients sharing this lot. If you arrive and find you are having a hard time finding a parking space, please note that we understand the challenges, please drive around the hospital and park near Hospital Entrance 1. When you enter this entrance, you can ask a volunteer to direct or take you back to the surgical waiting area to check in. We appreciate everyone?s understanding of these expected challenges while we build for your future. Report to the Outpatient Waiting Room, entrance under the green pavilion located off [address], at time __8AM__ on date 07/11/25__. Planned Procedure Time: _10AM___.? Time changes happen often and if your time is changed the preop area will call you the afternoon before. - You and your visitor will be asked to self-screen and do not enter if you have any COVID symptoms. Please call surgeon if you need to reschedule. - A mask is optional within the hospital at this time. Patients may have clear liquids (water, carbonated beverages, clear teas, apple juice) until 3 hours prior to surgery with a maximum of 20 ounces. - No food from midnight until time of surgery and no smoking, or chewing tobacco (or any form of nicotine). No chewing gum, candy or mints. Take only the following medications with a SIP of water on the morning of surgery: ___None DO NOT STOP ANY OF YOUR OTHER PRESCRIPTION MEDICATIONS PRIOR TO SURGERY EXCEPT THE FOLLOWING Hold all vitamins and supplements for 3 days per anesthesiologist. Medications to discontinue per physician Date to take last dose vitamins __07/07/25__ Please no make-up, nail czech, hairspray, perfume, deodorant, or body powder the day of surgery.? No jewelry (including any body piercings) or valuables the day of surgery, leave them at home.? Please take a shower or bath the night before, or the morning of, surgery with an antibacterial soap.? Wear comfortable, loose fitting clothing.? - Jewelry must be removed prior to entering the operating room.? Rings and piercings that are not removed may be cut off. - The hospital will not accept responsibility for valuables.? - Please leave all valuables, including medications, at home the day of surgery. If you are going home after surgery, a licensed sweeper driver must drive you home.? - NO public transportation without another adult if you receive anesthesia. - We recommend that an adult stay with you for 24 hours following discharge. - We also recommend that you do not drive, make important decision, drink alcoholic beverages, or take any drugs that were not prescribed by your health care provider for at least 24 hours after your discharge time. Follow any additional instructions given to you from your surgeon. Telephone instructions given to __Rod__and asked if any additional questions and then verbalized understanding. Patient advised to call surgeon office or pre surgery nurse liaison [phone] if any additional questions.
[2025-07-04 16:33] VITALS: BMI 22.8
[2025-07-11] VITALS (10 sets, daily range): BP systolic 89–102; BP diastolic 53–72; PULSE 55–77; RESP 14–18; TEMP 36.3–36.9; O2SAT 95–99
--- NOTE | ~2025-07-11 | XR_ITS ---
EXAMINATION: XR shoulder LT min 2V DATE: 07/11/2025 13:19 INDICATION: Status post left rotator cuff repair TECHNIQUE: AP and transscapular Y views of the left shoulder were obtained. COMPARISON: None FINDINGS: Normal alignment. No fracture. Glenohumeral joint is normal. Lucency at the acromioclavicular joint where there is been likely distal left clavicle resection and likely anterior acromioplasty. Small amount of expected postoperative gas in the soft tissues superolateral to the humeral head. Mild streaky left basilar atelectasis. IMPRESSION: Postoperative change at the left shoulder including distal left clavicle resection. See procedure note for further detail. Reviewed, dictated and finalized at location A. IMPRESSION: Postoperative change at the left shoulder including distal left clavicle resect ion. See procedure note for further detail.
--- OUTSIDE RECORDS SUMMARY | 2025-07-11 00:16 | XMS_ITS | Clinical Summary ---
Author Organization [facility] Address [address] [place] [address] Phone Care Team Providers Care Animal Control Specialist Name Role Phone Unavailable Primary Care Provider Unavailabl e Medications tadalafil (CIALIS) 10 mg tablet Take 1 Tablet (10 mg) by mouth daily as needed for sexual activity. Take approximately 30 minutes before activities. Do not take more than one dose in 24 hours. 10 Tablet 2 4 5:20 PM CDT 03/25/20 23 Active testosterone cypionate (DEPO-TESTOSTE RUBEN) 200 mg/mL Oil INJECT 200 MG INTRAMUSCULARLY ONCE MONTHLY A SINGLE DOSE. 3 mL 4 5:20 PM CDT 09/15/19 24 Active tadalafil (CIALIS) 10 mg tablet Take 1 Tablet (10 mg) by mouth 1 time daily as needed for sexual activity. Take approximately 30 minutes prior to activity. Max of 1 dose per 24 hours. 10 Tablet 2 4 10:04 AM CDT 06/06/20 24 Active triamcinolone acetonide (KENALOG) 0.5 % Ointment Apply topically to affected area(s) two times daily. 30 Gram 09/20/19 25 Active cholecalcifero l, Vitamin D3, 50 mcg (2,000 unit) Tablet Take 1 Tablet (2,000 Units) by mouth daily. 90 Tablet 2 09/21/19 25 Active rosuvastatin (CRESTOR) 40 mg tablet Take 1 Tablet (40 mg) by mouth daily. 90 Tablet 3 5 10:34 AM CDT 05/24/20 25 Active tadalafil (CIALIS) 10 mg tablet Take 1 tablet by mouth 30 minutes before sexual activity. Do not use for than 1 dose in 24 hours 10 Tablet 5 5 10:34 AM CDT 06/16/20 25 Active tadalafil (CIALIS) 10 mg tablet Take 1 tablet by mouth daily as needed 30 minutes before sexual activity. Do not use more than 1 dose per 24 hours. 10 Tablet 6 2 3:46 PM CDT 02/14/20 22 025 Discontin ued(Reord er) Social History Tobacco Use Types Packs/Day Years Used Date Smoking Tobacco: Never Assessed Sex and Gender Information Value Date Recorded Sex Assigned at Not on file Legal Sex Male 9:36 PM CDT Gender Identity Not on file Sexual Orientation Not on file Plan of Treatment Health Maintenance Due Date Last Done Comments DTAP/TDAP/TD VACCINES (1 - Tdap) 1984 HEPATITIS B VACCINES (1 of 3 - 19+ 3-dose series) 10/16 COLORECTAL SCREENING 2010 Colorectal Cancer Screening 2010 FIT-DNA Q 3 years 2010 FIT/FOBT Q 1 year 2010 Flex Sig/CT Colonography Q 5 years 2010 ZOSTER VACCINE (1 of 2) 2015 INFLUENZA VACCINE (#1) 2025 Insurance RX [employer] (INTERNAL) [facility] [employer] [facility]
--- OUTSIDE RECORDS SUMMARY | 2025-07-11 00:16 | XMS_ITS | Clinical Summary ---
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 Gender Identity Not on file Sexual Orientation Not on file Plan of Treatment Health Maintenance Due Date Last Done Comments Colorectal Cancer Screening Colonoscopy (10 Years) 1965 Annual Physical 1968 Hepatitis C 1983 Pneumococcal Vaccine: 50+ Years (1 of 1 - PCV) 2015 Zoster Vaccines (1 of 2) 2015 COVID-19 Vaccine (2 - 2024-2 6 season) 2025 08/22/2021 Influenza Adult (#1) 2025 DTaP, Tdap and Td Vaccines ( 4 - Td or Tdap) 02/22/2033 02/22/2023, 12/23/2016, 04/02/2006 Hepatitis A Vaccines Aged Out No long er eligible based on patient's age to complete this topic Meningococcal B Vaccine Aged Out No l onger eligible based on patient's age to complete this topic Meningococcal Vaccine Aged Out No sundar madeline eligible based on patient's age to complete this topic RSV Immunizations Under 20 Months Aged Out No longer eligible b ased on patient's age to complete this topic Insurance [facility] Care Teams Seasonal Delivery Driver Relationship Specialty Start Date End Date None, Provider, PCP - General UNKNOWN PHYSICIAN SPECIALTY 10/30/23
--- OUTSIDE RECORDS SUMMARY | 2025-07-11 00:16 | XMS_ITS | Clinical Summary ---
Author Organization [facility] Address [address] [place] [address] Care Team Providers Care Journeyman Carpenter Name Role Phone Marsha Lowery MD Primary Care Provider [phone] Allergies Active Allergy Reactions Criticality Noted Date Comments Povidone-Iodine Swelling Medium 07/13/2019 Medications simvastatin (ZOCOR) 20 mg tablet 9 Active sildenafiL (VIAGRA) 100 mg tablet Take 100 mg by mouth daily as needed for erectile dysfunction Active Active Problems Problem Noted Date Diagnosed Date Neck pain 12/15/2017 Radiculopathy 12/15/2017 Medical History Medical History Date Comments Hyperlipidemia Syncope Stenosis, cervical spine Family History Medical History Relation Name Comments Heart attack Father's Brother Heart attack Mother's Brother Relation Name Status Comments Father's Brother Mother's Brother Social History Tobacco Use Types Packs/Day Years Used Date Smoking Tobacco: Never Smokeless Tobacco: Never Alcohol Use Standard Drinks/Week Comments Yes 0 (1 standard drink = 0.6 oz pur e alcohol) AUDIT-C Answer Date Recorded Q1: How often do you have a drink containing alc ohol? 2-4 times a month 06/21/2021 Q2: How many drinks containi ng alcohol do you have on a typical day when you are drinking? 1 or 2 06/21/2021 Q3: How often do you have si x or more drinks on one occasion? Never 06/21/2021 Personal Safety Answer Date Recorded Getting School Help Needed Not on file 11/02 Sex and Gender Information Value Date Recorded Sex Assigned at Not on file Legal Sex Male 1:57 PM CDT Gender Identity Not on file Sexual Orientation Not on file Obstetrics History Last Filed Vital Signs Vital Sign Reading Time Taken Comments Blood Pressure 100/64 06/21/2021 3:16 PM CDT Pulse 79 06/21/2021 3:16 PM CDT Temperature - - Respiratory Rate - - Oxygen Saturation 97% 06/21/2021 3:16 PM CDT Inhaled Oxygen Concentration - - Weight 75.8 kg (167 lb) 06/21/2021 3:16 PM CDT Height 175.3 cm (5' 9) 06/21/2021 3:16 PM CDT Body Mass Index 24.66 06/21/2021 3:16 PM CDT Plan of Treatment Not on file Insurance [employer] Care Teams Journeyman Carpenter Relationship Specialty Start Date End Date Marsha Lowery MD PCP - General Family Medicine 06/21/21
--- OUTSIDE RECORDS SUMMARY | 2025-07-11 00:16 | XMS_ITS | Clinical Summary ---
Author Organization [facility] Address [address], [address] [address] Phone Care Team Providers Care Mold Sander Name Role Phone Unavailable Primary Care Provider Unavailabl e Medications polyethylene glycol (MIRALAX) Powder Use entire 255g bottle with 64oz of clear liquid as directed for colonoscopy prep. 255 g 0 7 Active Social History Tobacco Use Types Packs/Day Years Used Date Smoking Tobacco: Never Assessed Sex and Gender Information Value Date Recorded Sex Assigned at Not on file Legal Sex Male 9:27 AM CDT Gender Identity Not on file Sexual Orientation Not on file Plan of Treatment Health Maintenance Due Date Last Done Comments Hepatitis C Virus (HCV) Screening 1965 TdaP Immunization 1965 Hepatitis B Immunization (1 of 3 - 19+ 3-dose series) 1984 Cologuard 2010 Colonoscopy 2010 Colorectal Cancer Screening 2010 Immunochemical Fecal Occult Blood 2010 Pneumococcal Immunization (5 0+ years) (1 of 1 - PCV) 2015 Zoster Immunization (1 of 2) 2015 Influenza Immunization (#1) 2025 SARS-COV-2 Immunization ( - season) 2025 Respiratory Syncytial Virus (RSV) Immunization (Adult) (1 - 1-dose 75+ series) 2040 Human Papillomavirus (HPV) Immunization Aged Out No longer eligible b ased on patient's age to complete this topic Meningococcal Immunization (ACWY) Aged Out No longer eligible based on patient's age to complete this topic Rotavirus Immunization Aged Out No lo nger eligible based on patient's age to complete this topic Insurance [facility]
--- NOTE | 2025-07-11 07:13 | WPDHPUPDATE1 ---
History and Physical Update Update Date/Time: 07/11/25 07:13 History and Physical has been reviewed, including an updated exam of the patient. He is complaining of pain at the left acromioclavicular joint. He has severe AC joint arthrosis. After discussion of the risks, benefits, and alternatives we agreed to add distal clavicle excision to the procedure. Risks, benefits, and alternatives have been discussed and questions answered. Patient agrees to proceed with procedure.
[2025-07-11] MEDS: ACETAMINOPHEN 500 MG TABLET 1000 MG PO (09:15)
[2025-07-11] MEDS: KETOROLAC 15 MG/ML VIAL (*BKC) IV PUSH (09:15)
[2025-07-11] MEDS: LACTATED RINGERS 1,000 ML 30 ML IV CONT ×2 (09:15→12:55)
--- NOTE | 2025-07-11 09:24 | WPDANESEPPF ---
Anes - Initial Pre Proc Eval Procedure: Operation Date: 07/11/25 10:00 Proposed Procedures p Left Shoulder Arthroscopy, Rotator Cuff Repair with Subacromial Decompression, Biceps Tenodesis - Bethel Franco MD Date/Time: 07/11/25 09:24 Surgeon: Bethel Franco MD Pre Op Diagnosis: complete rot cuff tear lft shoulder Patient Data Age: 59 Gender: M Height: 1.75 m Weight: 70.4 kg Allergies Allergy/AdvReac Type Severity Reaction Status Date / Time povidone-iodine (From AdvReac Severe Rash Verified 07/04/25 16:29 Betadine) Home Medications ?Medication ?Instructions ?Recorded ?Confirmed ?Type rosuvastatin 40 mg tablet (Crestor) 40 mg PO DAILY #90 tabs 05/24/25 07/04/25 Rx tadalafil 10 mg tablet 10 mg PO DAILY PRN sexual activity 06/16/25 07/04/25 Rx #10 tabs omega 1-rvu-ekk-fish oil 1,000 mg 2 cap PO DAILY 07/04/25 07/04/25 History (120 mg-180 mg) capsule (Fish Oil) saw palm 160 mg-vit E 100 2 tablet PO DAILY 07/04/25 07/04/25 History unit-selen 100 yzn-wnoe-esmkpd-pygeum tablet (Prostate Health) aspirin 81 mg tablet,delayed 81 mg PO BID 14 days #28 tabs 07/11/25 Rx release oxycodone-acetaminophen 5 mg-325 1 - 2 tablet PO Q4-6H PRN pain 7 07/11/25 Rx mg tablet days #30 tabs Patient hx anesthesia problems: none Family hx anesthesia problems: none Results Review: All pre-operative results and documents have been reviewed as part of the pre-operative evaluation. [facility] Past Medical History Medical History Prediabetes Chronic left shoulder pain Chronic low back pain without sciatica Vitamin D deficiency Erectile dysfunction Hypogonadism Hypercholesterolemia Surgical History Surgical History H/O neck surgery (~08/2021) cervical diskectomy [place] teeth extracted (Unknown) Family History Family History Other Heart attack Father Cancer Other High cholesterol Social History Social History Smoking status: Never smoker Second hand tobacco smoke exposure: No Alcohol intake: current Drinks per week: 2 Alcohol use details: 2/month Substance use: never Substance use type: does not use Do You Feel Safe in your Home?: Yes Lack of Transportation: No Lack of Food: Never True Current Housing: I Have Housing Concerned About Future Housing: No Difficulty Paying Gas/Electric Bills: No Difficulty Paying for Meds: No Currently Unemployed: No Education: Bachelor's Degree Difficulty w/ Childcare or Family Care: No Living arrangements: with family Occupation/Education: occupation Gender identity (if verbalized by the patient): Male Spiritual care concerns: No Anes - Eval Final PreProcedure Day of Procedure 07/11/25 09:24 Patient weight: normal Heart: regular rate and rhythm Lungs: clear to auscultation Airway: Mallampati scale class II Neurological: alert and oriented Last oral intake: >/= 8 hours ASA classification: II Emergent: no Anesthetic plan: proceed Anesthesia type and monitoring: general ETT and standard monitoring Results Review: All pre-operative results and documents have been reviewed as part of the pre-operative evaluation. Informed Consent: The patient's anesthetic plan and its attendant risks and benefits were discussed with the patient/family/POA. Questions were solicited and answers provided to the satisfaction of the patient/family/POA.
--- NOTE | 2025-07-11 09:38 | WPDANESPNB ---
Anes - Peripheral Nerve Block Date/Time: 07/11/25 09:38 I have discussed with the patient/family/POA the placement of a peripheral nerve block for post-operative pain management, including associated risks, benefits, complications, and side effects. Alternative methods of post-operative analgesia were detailed. Questions were solicited and answers provided to the satisfaction of the patient/family/POA. Time-Out: A pre-procedural Time-Out was completed immediately before starting the procedure and confirmed: Patient Identification, Site, Procedure, Patient Position and the Availability of Requisite Equipment. Clinical Indications: Acute post-operative pain management requested by the operative surgeon. Nerve Block Insertion Note Anes-nerve block: interscalene left Patient position: supine Skin prep: chlorhexidine Needle: 22 gauge, stimulating, insulated echogenic needle. Needle length: 50 mm Technique: ultrasound Injectate: bupivacaine 0.5% with epi 5 mcg/ml (30cc) and dexamethasone (mg) (8) Observations: tolerated well Complications: none Procedure start time:: 927 Procedure end time:: 935
[2025-07-11] MEDS: ceFAZolin 2 GM in SODIUM CHLORIDE 0.9% IV 50 ML 100 ML IVPB (09:44)
[2025-07-11] MEDS: EPINEPHrine HCL INJ 1 MG/ML AMPUL 3 MG IRRIGATION (10:28)
--- NOTE | 2025-07-11 13:17 | W.PM.PROC2 ---
Procedure Note - Detailed Date of Procedure 07/11/25 Pre-op Diagnosis Left shoulder 1. Large retracted rotator cuff tear 2. Biceps tendinosis 3. Subacromial impingement 4. Acromioclavicular joint arthritis Post-op Diagnosis Same Procedure Performed Left shoulder 1. Arthroscopic rotator cuff repair 2. Arthroscopic subacromial decompression 3. Arthroscopic biceps tenodesis 4. Arthroscopic distal clavicle excision Surgeon Bethel Franco MD Continuous Process Tanner Rotary Drum Kim Mann PA-C Anesthesia General and Regional ( interscalene block) Findings Full-thickness large retracted L-shaped tear of the rotator cuff. Evidence of significant impingement from the acromion. The patient complained of pain at the acromioclavicular joint in the holding area and requested treatment. We agreed to proceed with arthroscopic distal clavicle excision. The upper subscapularis was also torn. The biceps was severely split and tearing with partial rupture. The articular cartilage was healthy. The labrum was normal. Repair included biceps tenodesis and upper subscapularis repair with a SwiveLock anchor anteriorly. The cuff was repaired with 2 bone tunnels and 6 sutures using a rip stop configuration of the 2nd and 5th suture. Supplemental sutures were placed anteriorly with horizontal mattress, centrally with a luggage tag, and posteriorly with a simple suture all brought to a SwiveLock laterally. This reinforced the tear and reduced the tendon very anatomically without undue tension. Acromioplasty was performed the arthroscopic bur anterolateral acromial bone. The distal clavicle excision was performed through an accessory anterior portal using the arthroscopic bur approximately 10 mm of bone was resected. Were Description of Procedure Preoperative antibiotics were given. An interscalene block was administered in the preoperative area. The patient was bought brought to the operating room. A general anesthetic was administered. The patient was carefully positioned in the beach chair position. The head and neck were carefully positioned. The non operative extremity was also carefully positioned. The shoulder was prepped and draped in the usual sterile fashion. Examination was performed. There were no unusual findings. Standard posterior and anterior arthroscopic portals were established. Inflow achieved with the arthroscopic pump using saline and epinephrine. The glenohumeral joint was carefully inspected. A large full-thickness supraspinatus tear was identified. Upper border subscapularis tear identified. Severe splitting and fraying of the intra-articular portion of the biceps tendon confirmed. Biceps was tagged with a luggage tag suture and released from the superior labrum. Attention was turned to the subacromial space. A complete bursectomy was performed. The tear configuration was carefully assessed. Acromioplasty was performed with the arthroscopic bur. The subscapularis was tagged with a or is on all mattress suture. The suture limbs combined with the biceps suture were incorporated into an anterior SwiveLock anchor. Good quiros fixation was obtained. Two tunnels then were placed at the greater tuberosity rotator cuff footprint. Six sutures were passed, 3 through each tunnel. The sutures were passed through the tendon. A rip stop configuration with the 2nd 5th tendon nicely compressed the tissue. There was some thinning of the central tendon. This area was reinforced with an additional luggage tag suture. The posterior cuff was reinforced with a simple suture. This corrected a very slight dog-ear. Similarly anterior mattress suture was placed from the accessory suture at the anterior anchor. The bone tunnel sutures were tied as well as the rip stop suture. The supplemental suture limbs were brought laterally to a SwiveLock anchor. Attention was turned to the distal clavicle which was exposed using the radiofrequency probe. There was significant arthritis and inferior spurring. The arthroscopic bur was placed through an accessory anterior portal and 8-10 mm of distal clavicle bone was excised. The 70 degree scope was used to carefully inspect the superior tissues to confirm complete excision. The arthroscopic instruments were removed. The wounds were closed with 3-0 Monocryl subcuticular suture and steri strips. There were no complications. A sling was applied and the patient brought to the recovery room. Physician records assistant, Kim Mann PA-C, required for surgery; including patient positioning, draping, arthroscopic camera operation, maintaining instrument position, suture retrieval, bone tunnel creation, anchor insertion, wound closure, and dressing and sling placement. Implants [employer] SwiveLock anchor x2. Estimated Blood Loss 10 Pathology None sent Complications No immediate complications Condition Stable Disposition PACU [facility] Billing Surgery - Charge Forward: Surgery Billing
== END 2025-07-11 15:29 | disposition home or self-care (01) ==
PROVIDERS: PCP Family Medicine; Visit Provider Orthopaedic Surgery
PROC: (CPT 29805; principal; 2025-07-11 10:00)
DX: M75.122 Complete rotator cuff tear or rupture of left shoulder, not specified as traumatic (principal); G89.18 Other acute postprocedural pain; M75.42 Impingement syndrome of left shoulder; M75.22 Bicipital tendinitis, left shoulder; M19.012 Primary osteoarthritis, left shoulder; M75.82 Other shoulder lesions, left shoulder
CPT/HCPCS: 29827; 29828; 29826; 29824; 64415; 73030; J0690; A4565; A9270; C1713; J0166; J1100; J1596; J1885; J2003; J2250; J2371; J2405; J2704; J3010; J7120